=== PATIENT | female | born 1965 | race Caucasian/White ===

== ENCOUNTER 2018-02-03 14:21 | Emergency (ER) | payer MEDICAID ==
[~2018-02-03] VITALS: Ht 170.2 cm; Wt 156.9 kg
[~2018-02-03 14:21] MED LIST: ALBU8HFA PO; HYDR-569 PO; NAPR-56 PO; PRED10TA PO
[2018-02-03 14:36] VITALS: BP 145/79
[2018-02-03] MEDS ORDERED: PRED20TA PO (16:12)
[2018-02-03] MEDS ORDERED: ALBU6.7H INH (16:12)
== END 2018-02-03 16:28 | disposition home or self-care (01) ==
LOC: ER 14:21
DX: J45.901 Unspecified asthma with (acute) exacerbation (principal); I10 Essential (primary) hypertension; E78.00 Pure hypercholesterolemia, unspecified; Z88.1 Allergy status to other antibiotic agents; Z79.899 Other long term (current) drug therapy
CPT/HCPCS: 71045; 99283

== ENCOUNTER 2018-09-10 15:23 | Emergency (ER) | payer MEDICAID ==
[~2018-09-10] VITALS: Ht 170.2 cm; Wt 160.0 kg
[~2018-09-10 15:23] MED LIST changes: +ALBU6.7H INH; +HYDR-4383 PO; -HYDR-569 PO
[2018-09-10 20:20] VITALS: BP 117/78
[2018-09-10] MEDS ORDERED: FLUT1DIS INH (20:26)
== END 2018-09-10 20:44 | disposition home or self-care (01) ==
LOC: ER 15:24
DX: J45.901 Unspecified asthma with (acute) exacerbation (principal); E78.00 Pure hypercholesterolemia, unspecified; I10 Essential (primary) hypertension; Z88.1 Allergy status to other antibiotic agents; Z79.899 Other long term (current) drug therapy
CPT/HCPCS: 71046; 71250; 99284

== ENCOUNTER 2018-10-21 13:26 | Emergency (ER) | payer MEDICAID ==
[~2018-10-21] VITALS: Ht 170.2 cm; Wt 158.6 kg
[~2018-10-21 13:26] MED LIST changes: +FLUT1DIS INH
[2018-10-21 13:55] VITALS: BP 134/70
[2018-10-21] MEDS ORDERED: ketorolac tromethamine 15mg/ml inj. IM ONE (15:00)
== END 2018-10-21 16:15 | disposition home or self-care (01) ==
LOC: ER 13:26
DX: M25.561 Pain in right knee (principal); M19.90 Unspecified osteoarthritis, unspecified site; E78.00 Pure hypercholesterolemia, unspecified; I10 Essential (primary) hypertension; J45.909 Unspecified asthma, uncomplicated; Z88.1 Allergy status to other antibiotic agents; Z79.899 Other long term (current) drug therapy
CPT/HCPCS: 73560; 96372; 99283; J1885

== ENCOUNTER 2023-09-05 11:28 | Inpatient (IN) | payer MEDICAID ==
[~2023-09-05] VITALS: Ht 170.2 cm; Wt 158.9 kg
[2023-09-05] VITALS (11 sets, daily range): BP systolic 104–128; BP diastolic 67–76; PULSE 76–140; RESP 12–18; TEMP 97.5–98.3; O2SAT 92–97
[~2023-09-05 11:28] MED LIST changes: -ALBU6.7H INH; +ALBU6.7H14 INH
[2023-09-05] MEDS: diltiazem 5mg/ml 5ml inj. IV STA (11:59)
[2023-09-05] MEDS: diltiazem 5mg/ml 5ml inj. IV ONE ×2 (12:00→14:03)
[2023-09-05 12:13] LABS: BASOPHILS # (AUTO) 0.1 X10'3 (0-0.2); BASOPHILS % (AUTO) 0.6 % (0-1); EOSINOPHILS # (AUTO) 0.2 X10'3 (0-0.9); EOSINOPHILS % (AUTO) 1.8 % (0-6); HEMATOCRIT 45.5 % (35.0-45.0); HEMOGLOBIN 15.3 g/dl (12.0-16.0); LYMPHOCYTES % (AUTO) 28.6 % (21-51); MEAN CORPUSCULAR HEMOGLOBIN 30.4 PG (27.0-31.0); MEAN CORPUSCULAR HGB CONC 33.5 g/dL (33.0-36.5); MEAN CORPUSCULAR VOLUME 90.7 FL (78-98); MEAN PLATELET VOLUME 8.5 FL (7.4-10.4); MONOCYTES # (AUTO) 0.7 X10'3 (0-0.9); MONOCYTES % (AUTO) 6.2 % (2-12); NEUTROPHILS # (AUTO) 6.5 X10'3 (1.8-7.7); NEUTROPHILS % (AUTO) 62.8 % (42-75); PLATELET COUNT 350 X10'3 (140-440); RED BLOOD COUNT 5.02 X10'6 (4.20-5.60); RED CELL DISTRIBUTION WIDTH 13.2 % (11.5-14.5); WHITE BLOOD COUNT 10.4 X10'3 (4.5-11.0)
[2023-09-05] MEDS ORDERED: VENL37.589 PO (12:24)
[2023-09-05] MEDS ORDERED: SIMV-42 PO (12:24)
[2023-09-05] MEDS ORDERED: AMLO-708 PO (12:24)
[2023-09-05] MEDS ORDERED: BECL10.62 INH (12:27)
[2023-09-05 12:28] LABS: ANION GAP 8 (8-16); BLOOD UREA NITROGEN 8 MG/DL (7-18); CHLORIDE 104 MMOL/L (99-107); CREATININE 0.94 MG/DL (0.40-0.90); GLUCOSE 121 MG/DL (70-104); POTASSIUM 4.1 MMOL/L (3.5-5.1); SODIUM 140 MMOL/L (135-145); TOTAL CARBON DIOXIDE 28.4 MMOL/L (24-32)
[2023-09-05] MEDS ORDERED: ALBU8HFA PO (12:28)
[2023-09-05 12:29] LABS: ALBUMIN 3.1 G/DL (3.4-5.0); BUN/CREATININE RATIO 8.5 (10.0-20.0); CALCIUM 8.8 MG/DL (8.5-10.1); PRO BRAIN NATRIURETIC PEPTIDE 1929 PG/ML (0-125); eCRCL 65 ML/MIN; eGFR 62 ML/MIN
[2023-09-05] MEDS ORDERED: iohexol 350MG/ML 100ml bottle IV ONE (13:02)
[2023-09-05 13:06] LABS: ALANINE AMINOTRANSFERASE 26 U/L (12-78); ALBUMIN 3.2 G/DL (3.4-5.0); ALBUMIN/GLOBULIN RATIO 0.6 (1.1-1.5); ALKALINE PHOSPHATASE 88 IU/L (46-116); ASPARTATE AMINO TRANSFERASE 15 U/L (10-37); BILIRUBIN,DIRECT 0.2 MG/DL (0-0.3); BILIRUBIN,TOTAL 0.6 MG/DL (0.1-1.0); MAGNESIUM 2.3 MG/DL (1.5-2.4); TOTAL PROTEIN 8.3 G/DL (6.4-8.2)
[2023-09-05] MEDS: diltiazem-NS 100mg/100ml 125 ML IV SCH (13:23)
[2023-09-05] MEDS ORDERED: magnesium Cl slow-release 64mg tablet PO PRN (14:25)
[2023-09-05] MEDS ORDERED: mag hydrox/Alum hydrox/simeth 30ml oral suspension PO PRN (14:25)
[2023-09-05] MEDS ORDERED: potassium Cl 40MEQ/1/2NS 520ml 520 ML IV PRN (14:25)
[2023-09-05] MEDS ORDERED: potassium Cl 20 mEq SR tablet PO PRN ×2 (14:25)
[2023-09-05] MEDS ORDERED: magnesium 2GM in 50ml NS 50 ML IV PRN (14:25)
[2023-09-05] MEDS ORDERED: magnesium 4gm in 100ml NS 100 ML IV PRN (14:25)
[2023-09-05] MEDS ORDERED: ondansetron/PF 4mg/2ml inj IV PRN (14:25)
[2023-09-05] MEDS ORDERED: acetaminophen 325mg tablet PO PRN (14:25)
[2023-09-05] MEDS ORDERED: magnesium hydroxide 30ml (MOM) UD suspension PO PRN (14:25)
[2023-09-05] MEDS ORDERED: diltiazem-NS 100mg/100ml 125 ML IV SCH (14:40)
[2023-09-05] MEDS ORDERED: diltiazem-NS 100mg/100ml 100 ML IV SCH (14:43)
[2023-09-05] MEDS: venlafaxine XR 37.5mg cap (Q24H) PO SCH (15:45)
[2023-09-05] MEDS: diltiazem-NS 100mg/100ml 100 ML IV SCH (17:36)
[2023-09-05] MEDS ORDERED: heparin, porcine 5000 units/ml vial SQ SCH (20:00)
[2023-09-05] MEDS: atorvastatin 10mg tablet PO SCH (20:26)
[2023-09-05] MEDS: apixaban 5mg tablet PO SCH (20:26)
[2023-09-05] MEDS: docusate sod 100mg capsule PO SCH (20:27)
[2023-09-05] MEDS: budesonide 0.5mg/2ml UD nebule IH SCH (22:13)
[2023-09-05] MEDS: albuterol 2.5 MG/3 ML nebule NEB PRN (22:13)
[2023-09-06] VITALS (23 sets, daily range): BP systolic 98–131; BP diastolic 46–85; PULSE 82–132; RESP 12–26; TEMP 97.3–98.1; O2SAT 92–97
[2023-09-06] MEDS ORDERED: diltiazem-NS 100mg/100ml 100 ML IV SCH (01:05)
[2023-09-06] MEDS: diltiazem-NS 100mg/100ml 100 ML IV SCH (03:57)
[2023-09-06 07:54] LABS: BASOPHILS # (AUTO) 0.1 X10'3 (0-0.2); BASOPHILS % (AUTO) 0.7 % (0-1); EOSINOPHILS # (AUTO) 0.1 X10'3 (0-0.9); EOSINOPHILS % (AUTO) 1.5 % (0-6); HEMATOCRIT 41.4 % (35.0-45.0); HEMOGLOBIN 13.7 g/dl (12.0-16.0); LYMPHOCYTES # (AUTO) 1.9 X10'3 (1.1-4.8); LYMPHOCYTES % (AUTO) 21.3 % (21-51); MEAN CORPUSCULAR HEMOGLOBIN 30.4 PG (27.0-31.0); MEAN CORPUSCULAR HGB CONC 33.2 g/dL (33.0-36.5); MEAN CORPUSCULAR VOLUME 91.7 FL (78-98); MEAN PLATELET VOLUME 9.1 FL (7.4-10.4); MONOCYTES # (AUTO) 0.5 X10'3 (0-0.9); NEUTROPHILS # (AUTO) 6.3 X10'3 (1.8-7.7); NEUTROPHILS % (AUTO) 70.5 % (42-75); PLATELET COUNT 284 X10'3 (140-440); RED BLOOD COUNT 4.52 X10'6 (4.20-5.60); RED CELL DISTRIBUTION WIDTH 13.2 % (11.5-14.5)
[2023-09-06 08:22] LABS: ALANINE AMINOTRANSFERASE 15 U/L (12-78); ALBUMIN 2.7 G/DL (3.4-5.0); ALBUMIN/GLOBULIN RATIO 0.6 (1.1-1.5); ALKALINE PHOSPHATASE 80 IU/L (46-116); ANION GAP 10 (8-16); ASPARTATE AMINO TRANSFERASE 9 U/L (10-37); BILIRUBIN,TOTAL 0.6 MG/DL (0.1-1.0); BLOOD UREA NITROGEN 9 MG/DL (7-18); BUN/CREATININE RATIO 10.2 (10.0-20.0); CALCIUM 8.3 MG/DL (8.5-10.1); CHLORIDE 104 MMOL/L (99-107); CHOL/HDL RATIO 2.7 (0.00-4.99); CHOLESTEROL 128 MG/DL (0-200); CREATININE 0.88 MG/DL (0.40-0.90); GLUCOSE 132 MG/DL (70-104); HDL CHOLESTEROL 48 MG/DL (35-60); LDL CHOLESTEROL 67 MG/DL (50-100); POTASSIUM 3.6 MMOL/L (3.5-5.1); SODIUM 141 MMOL/L (135-145); THYROID STIMULATING HORMONE 2.67 ulU/ml (0.34-4.50); TOTAL CARBON DIOXIDE 27.4 MMOL/L (24-32); TOTAL PROTEIN 7.3 G/DL (6.4-8.2); TRIGLYCERIDES 120 MG/DL (20-135); eCRCL 69 ML/MIN; eGFR 66 ML/MIN
[2023-09-06] MEDS: diltiazem 30mg tablet PO ONE (10:20)
[2023-09-06] MEDS: diltiazem 30mg tablet PO SCH (14:01)
[2023-09-06] MEDS: amiodarone 150mg/dext, iso-os 100 ML IV ONE (14:01)
[2023-09-06] MEDS: amiodarone 200mg tablet PO SCH (15:58)
[2023-09-06 16:31] LABS: BILIRUBIN,DIRECT 0.2 MG/DL (0-0.3); FREE T4 (FREE THYROXINE) 1.18 NG/DL (0.73-1.40); THYROID STIMULATING HORMONE 2.43 ulU/ml (0.34-4.50)
[2023-09-07] VITALS (17 sets, daily range): BP systolic 97–121; BP diastolic 57–74; PULSE 70–124; RESP 16–25; TEMP 97.5–98.4; O2SAT 92–98
[2023-09-07 07:56] LABS: BASOPHILS # (AUTO) 0.1 X10'3 (0-0.2); BASOPHILS % (AUTO) 0.7 % (0-1); EOSINOPHILS # (AUTO) 0.1 X10'3 (0-0.9); EOSINOPHILS % (AUTO) 1.6 % (0-6); HEMATOCRIT 40.6 % (35.0-45.0); HEMOGLOBIN 13.6 g/dl (12.0-16.0); LYMPHOCYTES # (AUTO) 1.9 X10'3 (1.1-4.8); LYMPHOCYTES % (AUTO) 20.4 % (21-51); MEAN CORPUSCULAR HEMOGLOBIN 30.4 PG (27.0-31.0); MEAN CORPUSCULAR HGB CONC 33.5 g/dL (33.0-36.5); MEAN CORPUSCULAR VOLUME 90.5 FL (78-98); MEAN PLATELET VOLUME 9.2 FL (7.4-10.4); MONOCYTES # (AUTO) 0.6 X10'3 (0-0.9); MONOCYTES % (AUTO) 6.7 % (2-12); NEUTROPHILS # (AUTO) 6.4 X10'3 (1.8-7.7); NEUTROPHILS % (AUTO) 70.6 % (42-75); PLATELET COUNT 271 X10'3 (140-440); RED BLOOD COUNT 4.49 X10'6 (4.20-5.60); WHITE BLOOD COUNT 9.1 X10'3 (4.5-11.0)
[2023-09-07 08:19] LABS: ALANINE AMINOTRANSFERASE 15 U/L (12-78); ALBUMIN 2.6 G/DL (3.4-5.0); ALBUMIN/GLOBULIN RATIO 0.6 (1.1-1.5); ALKALINE PHOSPHATASE 72 IU/L (46-116); ANION GAP 11 (8-16); ASPARTATE AMINO TRANSFERASE 10 U/L (10-37); BILIRUBIN,TOTAL 0.5 MG/DL (0.1-1.0); BLOOD UREA NITROGEN 11 MG/DL (7-18); BUN/CREATININE RATIO 12.4 (10.0-20.0); CALCIUM 8.4 MG/DL (8.5-10.1); CHLORIDE 104 MMOL/L (99-107); CREATININE 0.89 MG/DL (0.40-0.90); GLUCOSE 133 MG/DL (70-104); POTASSIUM 3.8 MMOL/L (3.5-5.1); SODIUM 141 MMOL/L (135-145); TOTAL CARBON DIOXIDE 26.5 MMOL/L (24-32); TOTAL PROTEIN 7.2 G/DL (6.4-8.2); eCRCL 69 ML/MIN; eGFR 66 ML/MIN
[2023-09-07] MEDS: carvedilol 6.25mg tablet PO SCH (10:35)
[2023-09-07] MEDS: flecainide 50mg tablet PO ONE (13:00)
[2023-09-07] MEDS: carvedilol 6.25mg tablet PO ONE (13:00)
[2023-09-07] MEDS: carVEDilol 12.5mg tablet PO SCH (19:52)
[2023-09-07] MEDS: flecainide 50mg tablet PO SCH (19:52)
[2023-09-08] VITALS (7 sets, daily range): BP systolic 90–105; BP diastolic 58–63; PULSE 67–82; RESP 14–22; TEMP 96.4–97.8; O2SAT 91–98
[2023-09-08 08:44] LABS: BASOPHILS % (AUTO) 0.4 % (0-1); EOSINOPHILS # (AUTO) 0.2 X10'3 (0-0.9); EOSINOPHILS % (AUTO) 2.4 % (0-6); HEMATOCRIT 40.6 % (35.0-45.0); HEMOGLOBIN 13.2 g/dl (12.0-16.0); LYMPHOCYTES # (AUTO) 1.8 X10'3 (1.1-4.8); LYMPHOCYTES % (AUTO) 19.4 % (21-51); MEAN CORPUSCULAR HGB CONC 32.6 g/dL (33.0-36.5); MEAN PLATELET VOLUME 9.2 FL (7.4-10.4); MONOCYTES # (AUTO) 0.6 X10'3 (0-0.9); MONOCYTES % (AUTO) 6.1 % (2-12); NEUTROPHILS # (AUTO) 6.8 X10'3 (1.8-7.7); NEUTROPHILS % (AUTO) 71.7 % (42-75); PLATELET COUNT 257 X10'3 (140-440); RED BLOOD COUNT 4.41 X10'6 (4.20-5.60); RED CELL DISTRIBUTION WIDTH 13.3 % (11.5-14.5); WHITE BLOOD COUNT 9.5 X10'3 (4.5-11.0)
[2023-09-08 09:08] LABS: ALANINE AMINOTRANSFERASE 19 U/L (12-78); ALBUMIN 2.6 G/DL (3.4-5.0); ALBUMIN/GLOBULIN RATIO 0.6 (1.1-1.5); ALKALINE PHOSPHATASE 74 IU/L (46-116); ANION GAP 9 (8-16); ASPARTATE AMINO TRANSFERASE 16 U/L (10-37); BILIRUBIN,TOTAL 0.4 MG/DL (0.1-1.0); BLOOD UREA NITROGEN 13 MG/DL (7-18); BUN/CREATININE RATIO 14.1 (10.0-20.0); CALCIUM 8.6 MG/DL (8.5-10.1); CHLORIDE 104 MMOL/L (99-107); CREATININE 0.92 MG/DL (0.40-0.90); GLUCOSE 121 MG/DL (70-104); SODIUM 139 MMOL/L (135-145); TOTAL CARBON DIOXIDE 26.3 MMOL/L (24-32); TOTAL PROTEIN 7.2 G/DL (6.4-8.2); eCRCL 66 ML/MIN; eGFR 63 ML/MIN
[2023-09-08 09:29] LABS: POTASSIUM 4.2 MMOL/L (3.5-5.1)
[2023-09-08] MEDS ORDERED: CARV-50 PO (10:14)
[2023-09-08] MEDS ORDERED: APIX5TAB3 PO (10:14)
[2023-09-08] MEDS ORDERED: TAM50T PO (12:25)
== END 2023-09-08 12:43 | disposition home or self-care (01) | DRG 201 ==
LOC: ER 11:29 → ED HOLD 14:39 → EDBEDREQTM 14:49 → EDBEDREQ 15:41 → PCU 3S 16:36
PROVIDERS: ADMIT Internal Medicine; ATTEND Internal Medicine
PROC: 5A09357 Assistance with Respiratory Ventilation, Less than 24 Consecutive Hours, Continuous Positive Airway Pressure (ICD-10-PCS; principal; 2023-09-06)
DX: I48.91 Unspecified atrial fibrillation (principal); I11.9 Hypertensive heart disease without heart failure; E78.5 Hyperlipidemia, unspecified; J45.909 Unspecified asthma, uncomplicated; F41.9 Anxiety disorder, unspecified; F32.A Depression, unspecified; Z88.8 Allergy status to other drugs, medicaments and biological substances
CPT/HCPCS: 36415; 71045; 71275; 80048; 80053; 80061; 80076; 82248; 83036; 83735; 83880; 84132; 84439; 84443; 84484; 85025; 93005; 93306; 94640; 94660; 94760; 96365; 96376; 97116; 97161; 97530; 99291; G0378; J0282; J3490; Q9967

== ENCOUNTER 2024-05-10 09:37 | Day surgery (SDC) | payer MEDICAID ==
[~2024-05-10] VITALS: Ht 167.6 cm; Wt 77.3 kg
[~2024-05-10 09:37] MED LIST changes: -ALBU6.7H14 INH; +BECL10.62 INH; +CARV-50 PO; -FLUT1DIS INH; -HYDR-4383 PO; -NAPR-56 PO; -PRED10TA PO; +SIMV-42 PO; +TAM50T PO; +VENL37.589 PO
[2024-05-10 09:57] VITALS: BP 142/85; PULSE 88; RESP 27; TEMP 98.2
[2024-05-10 10:45] VITALS: BP 115/67; PULSE 78; RESP 16; O2SAT 95
[2024-05-10 10:55] VITALS: BP 116/74; PULSE 75; RESP 16; O2SAT 94
[2024-05-10 11:05] VITALS: BP 118/76; PULSE 73; RESP 20; O2SAT 97
[2024-05-10 11:15] VITALS: BP 111/73; PULSE 69; RESP 13; O2SAT 95
== END 2024-05-10 11:30 | disposition home or self-care (01) ==
LOC: GI LAB 09:37
PROVIDERS: ATTEND Internal Medicine Gastroenterology
DX: R19.5 Other fecal abnormalities (principal); I10 Essential (primary) hypertension; E66.9 Obesity, unspecified; I48.91 Unspecified atrial fibrillation; G47.33 Obstructive sleep apnea (adult) (pediatric); J44.89 Other specified chronic obstructive pulmonary disease; Z87.891 Personal history of nicotine dependence; Z68.27 Body mass index [BMI] 27.0-27.9, adult; Z88.1 Allergy status to other antibiotic agents
CPT/HCPCS: 45378; J7030; Z7512

== ENCOUNTER 2024-10-25 13:36 | Outpatient (CLI) | payer MEDICAID ==
--- NOTE | 2024-10-25 15:07 | RADIOLOGY REPORT ---
EXAM: DI TOE(S) CLINICAL INDICATION: RIGHT THIRD TOE PAIN TECHNIQUE: DI TOE(S), 3v Comparison: None FINDINGS/IMPRESSION: There is no evidence of acute fracture or dislocation. The visualized joint space is well maintained. The alignment is anatomical. There is no radiopaque foreign body.
== END 2024-10-25 23:59 | disposition home or self-care (01) ==
LOC: RAD 13:36
PROVIDERS: ATTEND Student in an Organized Health Care Education/Training Program
DX: M79.674 Pain in right toe(s) (principal)
CPT/HCPCS: 73660